=== PATIENT | male | born 1970 | race Caucasian/White ===

== ENCOUNTER 2023-08-27 05:03 | Emergency (ER) | payer OTHER, SELFPAY ==
[2023-08-27 05:03] VITALS: BMI 33.9
[2023-08-27 05:05] VITALS: BP 149/98
--- NOTE | 2023-08-27 06:38 | ED.GENMED ---
History of Present Illness
General
Chief Complaint: Musculo-Skeletal Complaint
Source: patient
Time Seen by Provider: 08/27/23 06:32
Travel History
Have you had any contact with someone who has COVID-19?: No
Do you have any symptoms of coronavirus? Fever > 100 degrees, chills, cough, shortness of breath, sore throat, loss of taste or smell, muscle aches, or headache?: No
History of Present Illness
History of Present Illness:
52-year-old male presents to the emergency room complaining of pain in his left great toe. Pain began 2 or 3 days ago spontaneously. He does not recall an injury but assumed he must of injured his toe in someway to cause this level of pain. It
has increased in severity to the point last night where he could not sleep. No other medical problems. Patient does endorse alcohol use. Denies smoking. He does not take any prescription medications.
Past History
Past History
ED Past Medical History: None
ED Past Surgical History: None
Patient has exhibited threatening behavior?: No
Social History
Tobacco: Smoker
Personal:
Living: with family
Employment: Employed
Phy Exam
Physical Exam
Physical Exam:
General: Awake, Alert, Oriented X3. No acute distress.
Vitals: unremarkable
Head: Atraumatic
Eyes: Pupils equal, EOMI
Throat: Airway intact, no exudates
Neuro: Nonfocal
Skin: Warm, dry, no rash
Extremities: pulses equal b/l, no edema, erythema noted over the MTP joint of the left great toe. Significant pain with minimal palpation or movement
Course
Orders/Labs/Results
Orders:
Orders
08/27/23 06:37
Colchicine 0.6 mg PO NOW STA
Ibuprofen [Motrin] 600 mg PO NOW STA
CR Foot - Left Min 3 Views Urgent
Reason For Exam: great toe pain
Vital Signs
Initial and Last Documented VS:
Initial Vital Signs
Temp Pulse Resp BP Pulse Ox
97.9 F 98 19 149/98 96
08/27/23 05:05 08/27/23 05:05 08/27/23 05:05 08/27/23 05:05 08/27/23 05:05
Last Documented Vital Signs
Temp Pulse Resp BP Pulse Ox
97.9 F 98 19 149/98 96
08/27/23 05:05 08/27/23 05:05 08/27/23 05:05 08/27/23 05:05 08/27/23 05:05
MDM/Problems Addressed
Differential Diagnosis Includes:
Gout, fracture, joint infection
MDM/Problems Addressed:
X-ray unremarkable. Overall presentation highly consistent with gout. Will treat with prednisone, NSAIDs follow-up with primary care provider. Patient is feeling better after treatment here.
*Radiology
Radiology exam reviewed: preliminary read by ED provider (Personally viewed the patient's foot x-ray see no acute disease)
*Pulse Oximetry
Patient hypoxic: no
*Critical Care Note
Total Time (30-74mins, 75-104mins- exclusive of procedures): Not Applicable
ED Attending Note
-
Portions of this chart may have been created with voice recognition software.� Occasional wrong word or��sound alike� substitutions may have occurred due to the inherent limitations of voice recognition software.
Discharge Plan
Departure
Patient Disposition: Home (Routine Discharge)
Date of Disposition: 08/27/23
Time of Disposition: 07:58
Patient with high blood pressure during this ER visit?: Yes
Condition: Good
Discharge Problem:
Gout
Instructions: Lifestyle Changes to Manage Gout, Gout ED
Prescriptions:
New
prednisone 20 mg tablet
40 mg PO DAILY Qty: 10 0RF
oxycodone 5 mg tablet
5 mg PO Q6H PRN (Reason: Pain) Qty: 12 0RF
No Action
metaxalone [Skelaxin] 800 MG tablet
800 mg PO .3-4 TIMES DAILY PRN PRN (Reason: MUSCLE SPASM/TIGHTNESS) Qty: 20 0RF
cephalexin [Keflex] 500 MG capsule
500 mg PO BID Qty: 14 0RF
diclofenac sodium 75 mg tablet,delayed release (DR/EC)
75 mg PO BID Qty: 20 0RF
Referrals:
NONE,* [Family Provider] -
Interventions
Interventions:
*Risk Screen - Suicide Last Done: 08/27/23 05:05
*General Assessment Last Done: 08/27/23 05:05
*Neglect/Abuse Screening Last Done: 08/27/23 05:05
*ED COVID-19 Vaccine History Last Done: 08/27/23 05:05
*Nursing Disposition Last Done: 08/27/23 08:18
ED-Musculoskeletal Assessment Last Done: 08/27/23 05:32
Discharge Date and Time
Discharge Date/Time: 08/27/23 08:18
Print Language: FRENCH
[2023-08-27] MEDS: MOTRIN 600 MG PO (06:48)
[2023-08-27] MEDS: COLCHICINE 0.599999999999999978 MG PO (06:48)
== END 2023-08-27 08:18 | disposition home or self-care (01) ==
LOC: EMR 05:03
PROVIDERS: EMERGENCY PHYSICIAN Emergency Medicine
DX: M10.9 Gout, unspecified (principal); F17.200 Nicotine dependence, unspecified, uncomplicated; R03.0 Elevated blood-pressure reading, without diagnosis of hypertension
CPT/HCPCS: 99283; 73630

== ENCOUNTER 2024-05-29 04:09 | Emergency (ER) | payer OTHER, SELFPAY ==
[2024-05-29 04:10] VITALS: BMI 29.1
[2024-05-29 04:11] VITALS: BP 139/93
[2024-05-29 04:38] VITALS: BP 136/85
--- NOTE | 2024-05-29 04:42 | ED.GENMED ---
History of Present Illness
General
Chief Complaint: Musculo-Skeletal Complaint
Source: patient
Exam Limitations: none
Time Seen by Provider: 05/29/24 04:35
History of Present Illness
History of Present Illness:
See MDM
Past History
Past History
ED Past Medical History: Other (Gout)
ED Past Surgical History: None
Patient has exhibited threatening behavior?: No
Social History
Tobacco: Smoker
Personal:
Living: with family
Employment: Employed
Phy Exam
Physical Exam
Physical Exam:
See MDM
Course
Orders/Labs/Results
Orders:
Orders
05/29/24 04:38
Colchicine 1.2 mg PO NOW STA
Prednisone [Deltasone] 40 mg PO NOW STA
05/29/24 04:39
Colchicine 0.6 mg PO NOW STA
05/29/24 04:40
Oxycodone/Acetaminophen [Percocet 5/325] 1 tablet PO NOW STA
Vital Signs
Initial and Last Documented VS:
Initial Vital Signs
Temp Pulse Resp BP
99.7 F 112 18 139/93
05/29/24 04:11 05/29/24 04:11 05/29/24 04:11 05/29/24 04:11
Last Documented Vital Signs
Temp Pulse Resp BP
99.7 F 112 18 139/93
05/29/24 04:11 05/29/24 04:11 05/29/24 04:11 05/29/24 04:11
MDM/Problems Addressed
Differential Diagnosis Includes:
HPI and MDM Narrative:
53-year-old male presenting with right toe and foot pain. Patient states the pain has been progressive for the past 3 days. Patient states this feels exactly like past gout flare.
On exam, there is mild tenderness and swelling to the dorsum of his right foot and into right big toe. The extremity is neurovascular intact.
Patient states the last treatment in the emergency helped the best. Looking at prior indicate that he was placed on prednisone and Percocet. Will continue that as well but will load with colchicine
Physical exam
General: Well appearing and non-toxic
HEENT: protecting airway
Neck: appears supple
CV: No evidence of cyanosis
Resp: No accessory muscle use
Abd: Non-distended
Extremities: Mild swelling and tenderness to dorsum of right foot and right big toe. Sensation intact
Neuro: alert
Psych: Normal affect
Skin: Intact
Problems Addressed including Acute and Chronic Conditions affecting care:
1. Gout flare
Acuity: acute
Prognosis: stable
Details: Will start prednisone and pain medicine. Will load with colchicine and repeat dose in one hour
2. [ ]
Acuity: acute
Prognosis: stable
Details:
3. [ ]
Acuity: acute
Prognosis: stable
Details:
4. [ ]
Acuity: acute
Prognosis: stable
Details:
5. [ ]
Acuity:
Prognosis:
Details:
Updates
Differential Diagnosis (but not limited to): Gout, muscle strain, plantar fasciitis
Testing considered: Foot x-ray but he denies trauma
Drug therapy (if applicable): OTC meds, please see d/c instruction regarding Rx drugs
Amount and/or Complexity of Data Reviewed
Clinical info obtained from: Patient
External data reviewed: N/A
Labs I independently reviewed (but not limited to): N/A
Radiology: N/A
Pulse Ox: not hypoxic
EKG independently reviewed: N/A
Human Resources Talent Manager: N/A
Critical Care: N/A
Risk of Complication:
Social Determinants of health: Good social support
Discussed with other providers: N/A
Escalation of Care includes Admit/Obs: After being observed in the Emergency Department, pt stable for discharge.
Occasional wrong word or 'sound a like' substitutions may have occurred due to the inherent limitations of voice recognition software. Read the chart carefully and recognize, using context, where substitutions have occurred.
*Critical Care Note
Total Time (30-74mins, 75-104mins- exclusive of procedures): Not Applicable
ED Attending Note
-
Portions of this chart may have been created with voice recognition software.� Occasional wrong word or��sound alike� substitutions may have occurred due to the inherent limitations of voice recognition software.
Discharge Plan
Departure
Patient Disposition: Home (Routine Discharge)
Date of Disposition: 05/29/24
Time of Disposition: 04:45
Patient with high blood pressure during this ER visit?: No
Discharge Problem:
Gout flare
Instructions: Gout ED
Prescriptions:
New
prednisone 20 mg tablet
40 mg PO DAILY Qty: 10 0RF
oxycodone 5 mg tablet
5 mg PO Q8H PRN (Reason: Pain) Qty: 10 0RF
No Action
metaxalone [Skelaxin] 800 MG tablet
800 mg PO .3-4 TIMES DAILY PRN PRN (Reason: MUSCLE SPASM/TIGHTNESS) Qty: 20 0RF
cephalexin [Keflex] 500 MG capsule
500 mg PO BID Qty: 14 0RF
diclofenac sodium 75 mg tablet,delayed release (DR/EC)
75 mg PO BID Qty: 20 0RF
prednisone 20 mg tablet
40 mg PO DAILY Qty: 10 0RF
oxycodone 5 mg tablet
5 mg PO Q6H PRN (Reason: Pain) Qty: 12 0RF
Activity Restrictions/Additional Instructions:
Please return for any worsening symptoms.
You may return at any time if you have further concerns.
Please follow up with your doctor at the first available appointment, preferably this week.
Thank you for choosing [facility].
Interventions
Interventions:
*Risk Screen - Suicide Last Done: 05/29/24 04:11
Discharge Date and Time
Print Language: OCCITAN
[2024-05-29] MEDS: DELTASONE 40 MG PO (04:46)
[2024-05-29] MEDS: COLCHICINE 1.2 MG PO (04:46)
[2024-05-29 05:00] VITALS: BP 146/93
[2024-05-29 06:00] VITALS: BP 127/85
[2024-05-29] MEDS: COLCHICINE 0.6 MG PO (06:04)
[2024-05-29] MEDS: PERCOCET 5/325 1 TABLET PO (07:48)
[2024-05-29 07:54] VITALS: BP 129/79
== END 2024-05-29 07:55 | disposition home or self-care (01) ==
LOC: EMR 04:09
PROVIDERS: EMERGENCY PHYSICIAN Student in an Organized Health Care Education/Training Program
DX: M10.9 Gout, unspecified (principal); M79.671 Pain in right foot; M79.89 Other specified soft tissue disorders; F17.200 Nicotine dependence, unspecified, uncomplicated
CPT/HCPCS: 99283